=== PATIENT | male | born 1975 | race Caucasian/White ===

== ENCOUNTER 2017-11-21 05:15 | Day surgery (SDC) | payer OTHER ==
[~2017-11-21] VITALS: Ht 177.8 cm; Wt 163.3 kg
[~2017-11-21 05:15] MED LIST: ADVAIR 100-501 EACH IH; AMARYL2 MG PO; BREO ELLIPTA I1 EACH IH; ERGOCALCIF50000 UNIT PO; GLUCOPHAGE500 MG PO; Glucophage PO; LIPITOR20 MG PO; Levaquin PO; NORVASC5 MG PO; Norvasc PO; PROVENTIL17 GM IH; SYNTHROID25 MCG PO; Sterapred 5 mg Uni-P PO; VENTOLIN HFA18 GM IH; VITAMIN B-12500 MC3 PO; ZESTRIL2.5 MG PO; ZYRTEC10 M2 PO
[2017-11-21 06:14] VITALS: BP 135/79; BP 35/79
[2017-11-21] MEDS ORDERED: MOTRIN600 MG PO (09:46)
[2017-11-21] MEDS ORDERED: NORCO 5/3251 TABLET PO (09:46)
[2017-11-21 11:25] VITALS: BP 136/79
[2017-11-21 12:25] VITALS: BP 141/82
[2017-11-21 13:30] VITALS: BP 128/72
== END 2017-11-21 13:45 | disposition home or self-care (01) ==
LOC: SDC
PROVIDERS: Surgery
PROC: 0WUF4JZ Supplement Abdominal Wall with Synthetic Substitute, Percutaneous Endoscopic Approach (ICD-10-PCS; principal; 2017-11-21)
DX: K42.0 Umbilical hernia with obstruction, without gangrene (principal); E66.01 Morbid (severe) obesity due to excess calories; Z68.43 Body mass index [BMI] 50.0-59.9, adult; K66.0 Peritoneal adhesions (postprocedural) (postinfection); I10 Essential (primary) hypertension; G47.30 Sleep apnea, unspecified; J44.9 Chronic obstructive pulmonary disease, unspecified; E11.9 Type 2 diabetes mellitus without complications; E03.9 Hypothyroidism, unspecified; Z79.84 Long term (current) use of oral hypoglycemic drugs
CPT/HCPCS: 82948; C1781; J0131; J0690; J1170; J1885; J2250; J2405; J2710; J2765; J3010; S0020